=== PATIENT | female | born 1965 | race Caucasian/White ===

== ENCOUNTER 2022-05-31 17:27 | Observation (INO) ==
[2022-05-31] MEDS ORDERED: APRESOLINE INJ 20 MG VIAL IVP PRN (19:34)
[2022-05-31] MEDS: NS 1,000 ML IV 1,000 ML IV SCH (21:31)
[2022-05-31] MEDS: COZAAR PO SCH (21:32)
[2022-05-31] MEDS: NORVASC TAB 5 MG PO SCH (21:33)
[2022-05-31] MEDS: NovoLIN R (or HumuLIN R) SUBCUT PRN (21:55)
[2022-05-31] MEDS: SNACK - Diabetic Appropriate PO SCH (21:56)
[2022-05-31 23:28] VITALS: BMI 38.7
[2022-06-01 05:57] LABS: BASOPHILS # (AUTO) 0.1 X10^3/uL (0.0-0.1); BASOPHILS % (AUTO) 0.8 % (0.2-1.0); EOSINOPHILS # (AUTO) 0.3 x10^3/uL (0.0-0.2); EOSINOPHILS % (AUTO) 4.1 % (0.9-2.9); HEMATOCRIT 40.2 % (36.0-47.0); HEMOGLOBIN 13.8 g/dL (12.0-16.0); LYMPHOCYTES # (AUTO) 2.9 X10^3/uL (1.3-2.9); LYMPHOCYTES % (AUTO) 38.8 % (21.0-51.0); MEAN CORPUSCULAR HEMOGLOBIN 28.9 pg (27.0-34.0); MEAN CORPUSCULAR HGB CONC 34.4 g/dL (33.0-35.0); MEAN CORPUSCULAR VOLUME 84.1 fL (80.0-100.0); MEAN PLATELET VOLUME 8.4 fL (7.4-11.0); MONOCYTES # (AUTO) 0.6 x10^3/uL (0.3-0.8); MONOCYTES % (AUTO) 7.6 % (0.0-13.0); NEUTROPHILS # (AUTO) 3.7 x10^3/uL (2.2-4.8); NEUTROPHILS % (AUTO) 48.7 % (42.0-75.0); RED BLOOD COUNT 4.78 X10^6/uL (3.5-5.4); RED CELL DISTRIBUTION WIDTH 14.2 % (11.6-16.5); WHITE BLOOD COUNT 7.5 X10^3/uL (3.6-10.0)
[2022-06-01] MEDS ORDERED: GLUCOPHAGE ONE ×2 (06:03→16:56)
[2022-06-01 06:06] LABS: ALANINE AMINOTRANSFERASE 34 Units/L (12-78); ALBUMIN 3.1 g/dL (3.4-5.0); ALKALINE PHOSPHATASE 137 Units/L (46-116); ASPARTATE AMINO TRANSFERASE 24 Units/L (15-37); BLOOD UREA NITROGEN 12 mg/dL (7-18); CALCIUM 8.5 mg/dL (8.5-10.1); CARBON DIOXIDE 29.5 mmol/L (21-32); CHLORIDE 100 mmol/L (98-107); COR CA(FOR HYPOALB) 9.2 mg/dL (8.5-10.1); COR NA(FOR HYPERGLY) 139 mmol/L (136-145); CREATININE 0.79 mg/dL (0.55-1.02); SODIUM 136 mmol/L (136-145); TOTAL PROTEIN 7.3 g/dL (6.4-8.2); eGFR NON BLACK RACES > 60 (>60)
[2022-06-01] MEDS: NovoLIN R (or HumuLIN R) SUBCUT PRN ×4 (06:06→21:12)
[2022-06-01] MEDS: GLUCOPHAGE PO SCH ×2 (06:07→17:00)
--- NOTE | 2022-06-01 08:46 | DR.H&P ---
H&P - History & Physical for Day of: H&P Date: 05/31/22 - Chief Complaint Chief Complaint: Off Balance, questions if had another stroke, elevated BP and BS - History of Present Illness History of Present Illness: the patient is a 56-year-old white female presented to the [facility] after work instructed her to present to the doctor's office. Patient was found to have delayed responses as well as blood pressure 200/130 and blood sugar 570s. patient states that she had taken her medications. Patient did state that she had to stop the Farxiga Due to allergic reaction and pharmacy has been out of her Ozempic. Patient states she started feeling LAST weekend and went to the emergency room. States that she failed off balance and sluggish. Review of medical records status revealed workup for elevated blood sugar 700. Patient denies workup for stroke. Patient does complain of having new onset weakness to the right side. Family member present and states that she has been sluggish to answer questions. States that she is not at her mental baseline. patient is agreeable for admission. - Past Medical History Past Medical History: CVA, Diabetes, Dyslipidemia, Migraines, Headaches, Hypertension, Hypothyroidism Additional Medical History: Vitamin D deficiency - Past Surgical History Surgical History: , Cholecystectomy, [employer] Surgery Additional Surgical History: Endarectomy - Family History Family Medical History: Diabetes Mellitus, Cancer, Hypertension - Social History Does patient currently use any type of tobacco product: No Have you used tobacco products in the last 12 months: No Type of Tobacco Use: None Does any household member use tobacco: No Alcohol Use: None Drug Use: None Risks, benefits, and alternatives of opioids discussed: No Prescription drug monitoring program results: PDMP reviewed and no concerns id entified - Medications Home Medications: clonidine Allergy (Verified 02/03/21 11:44) insulin aspart [From Novolog U-100 Insulin aspart] Allergy (Verified 02/03/21 11:44) CONTINUE taking the following medications clopidogrel 75 mg tablet 1 tab PO QDAY 05/31/22 [History] glimepiride 4 mg tablet 1 tab PO BID 05/31/22 [History] metformin 500 mg tablet 500 mg PO BID 05/31/22 [History] semaglutide 0.25 mg or 0.5 mg (2 mg/1.5 mL) subcutaneous pen injector (Ozempic) 1 ea subcut WEEKLY 05/31/22 [History] - Review of Systems Constitutional: Malaise Eyes: No Symptoms Reported ENT: No Symptoms Reported Respiratory: No Symptoms Reported Cardiovascular: No Symptoms Reported Gastrointestinal: No Symptoms Reported Genitourinary: No Symptoms Reported Musculoskeletal: No Symptoms Reported Skin: No Symptoms Reported Neurological: See HPI, Weakness, Change in Speech - Physical Exam Vital Signs: Temperature 97.6 F Pulse Rate [Left Radial] 63 Respiratory Rate 20 Blood Pressure [Right Arm] 159/80 Blood Pressure [Left Arm] 180/85 Blood Pressure 136/83 O2 Sat by Pulse Oximetry 96 Oriented: Normal Eyes: Normal Ear: Normal Nose: Normal Throat: Normal Respiratory: Clear Throughout Cardiovascular: Normal : Normal Auscultation: Bowel Sounds: Normal Palpation: Normal Tenderness: Normal Skin: Normal Musculoskeletal: Motor Deficit Psychiatric: Normal Mood Description: Calm Affect: Normal Speech Pattern: Delayed - Assessment/Plan (1) Diabetes Qualifiers: Diabetes mellitus type: type 2 Diabetes mellitus complication status: with hyperglycemia Status: Acute Plan: fingerstick blood sugars before meals and at bedtime with sliding scale coverage (2) Hypertension Qualifiers: Hypertension type: primary hypertension Qualified Code(s): I10 - Essential (primary) hypertension Status: Acute Plan: monitor blood pressure and administer medications as needed (3) Cerebrovascular disease Status: Acute Plan: evaluate for acute event (4) Altered mental status Status: Acute Plan: CT of head to rule out acute event, improved blood sugar and blood pressure - Review H&P Reviewed: Yes Patient was examined?: Yes - Allergies Allergies/Adverse Reactions: Allergies Allergy/AdvReac Type Severity Reaction Status Date / Time clonidine Allergy Verified 02/03/21 11:44 insulin aspart Allergy Verified 02/03/21 11:44 [From Novolog U-100 Insulin aspart]
[2022-06-01] MEDS: NORVASC TAB 5 MG PO SCH (09:29)
[2022-06-01] MEDS: PROTONIX INJ 40 MG VIAL IVP SCH (09:29)
[2022-06-01] MEDS: COZAAR PO SCH (09:30)
[2022-06-01] MEDS: PLAVIX PO SCH (09:33)
[2022-06-01] MEDS: NS 1,000 ML IV 1,000 ML IV SCH (10:00)
[2022-06-01] MEDS: SNACK - Diabetic Appropriate PO SCH (20:55)
[2022-06-02] MEDS: NS 1,000 ML IV 1,000 ML IV SCH ×2 (00:10→14:53)
[2022-06-02 05:52] LABS: BASOPHILS % (AUTO) 0.6 % (0.2-1.0); EOSINOPHILS # (AUTO) 0.2 x10^3/uL (0.0-0.2); EOSINOPHILS % (AUTO) 3.6 % (0.9-2.9); HEMATOCRIT 40.2 % (36.0-47.0); HEMOGLOBIN 13.7 g/dL (12.0-16.0); LYMPHOCYTES # (AUTO) 2.2 X10^3/uL (1.3-2.9); MEAN CORPUSCULAR HEMOGLOBIN 28.8 pg (27.0-34.0); MEAN CORPUSCULAR HGB CONC 34.1 g/dL (33.0-35.0); MEAN CORPUSCULAR VOLUME 84.4 fL (80.0-100.0); MEAN PLATELET VOLUME 8.2 fL (7.4-11.0); MONOCYTES # (AUTO) 0.5 x10^3/uL (0.3-0.8); MONOCYTES % (AUTO) 7.9 % (0.0-13.0); NEUTROPHILS # (AUTO) 3.7 x10^3/uL (2.2-4.8); NEUTROPHILS % (AUTO) 54.9 % (42.0-75.0); RED BLOOD COUNT 4.76 X10^6/uL (3.5-5.4); RED CELL DISTRIBUTION WIDTH 14.3 % (11.6-16.5); WHITE BLOOD COUNT 6.7 X10^3/uL (3.6-10.0)
[2022-06-02] MEDS ORDERED: GLUCOPHAGE ONE ×2 (06:01→15:47)
[2022-06-02] MEDS: NovoLIN R (or HumuLIN R) SUBCUT PRN ×4 (06:07→20:45)
[2022-06-02 06:11] LABS: ALANINE AMINOTRANSFERASE 30 Units/L (12-78); ALBUMIN 2.8 g/dL (3.4-5.0); ALKALINE PHOSPHATASE 124 Units/L (46-116); ASPARTATE AMINO TRANSFERASE 20 Units/L (15-37); BLOOD UREA NITROGEN 13 mg/dL (7-18); CALCIUM 8.4 mg/dL (8.5-10.1); CARBON DIOXIDE 28.2 mmol/L (21-32); CHLORIDE 99 mmol/L (98-107); COR CA(FOR HYPOALB) 9.4 mg/dL (8.5-10.1); COR NA(FOR HYPERGLY) 137 mmol/L (136-145); CREATININE 0.84 mg/dL (0.55-1.02); SODIUM 133 mmol/L (136-145); TOTAL PROTEIN 6.8 g/dL (6.4-8.2); eGFR NON BLACK RACES > 60 (>60)
[2022-06-02] MEDS: GLUCOPHAGE PO SCH ×2 (06:11→16:05)
--- NOTE | 2022-06-02 08:26 | VAS ---
HISTORYMalignant hypertension. Altered mental status.STUDYCAROTID USCOMPARISONNoneTECHNIQUEFifty-nine images made by the specialty sales representative. [place] scale and color flow Doppler images of the right carotid arterial system, left carotid arterial system, and vertebral arterial system were obtained.FINDINGSVelocities are measured in centimeters per second. Recommendations are based on peer reviewed published data from Society of Radiologists in Ultrasound Consensus Conference, 2003.Right side: Right common carotid and internal carotid arteries are widely patent. No significant plaque disease seen in the right carotid bulb.Peak systolic velocity in the right common carotid artery measured 63. Peak systolic velocity in the right internal carotid artery measured 65. This yields a peak systolic velocity ratio of 1.0. The peak end diastolic velocity measured 31. There is no hemodynamically significant stenosis.Right external carotid artery was patent. Flow in the right vertebral artery was antegrade.Left side: Left common carotid and internal carotid arteries are widely patent. Very minimal plaque noted in the left carotid bulb seen is focal wall thickening. There is no echogenicity or shadowing to suggest calcification.Peak systolic velocity in the left common carotid artery measured [105]. Peak systolic velocity in the left internal carotid artery measured [76]. This yields a peak systolic velocity ratio of [0.7]. The peak end diastolic velocity measured [26]. [There is no hemodynamically significant stenosis.]Left external carotid artery was patent. Flow in the left vertebral artery was antegrade.IMPRESSION1. Very minimal left carotid bulb plaque2. No significant right or left carotid stenosisElectronically signed by: Heraclio Almendarez (Jun 02, 2022 08:24:58)
[2022-06-02] MEDS: NORVASC TAB 5 MG PO SCH (08:30)
[2022-06-02] MEDS: PLAVIX PO SCH (08:30)
[2022-06-02] MEDS: COZAAR PO SCH (08:30)
[2022-06-02] MEDS: PROTONIX INJ 40 MG VIAL IVP SCH (08:30)
[2022-06-02] MEDS ORDERED: ATIVAN INJ 2 MG VIAL IVP PRN (10:57)
[2022-06-02] MEDS ORDERED: BENADRYL INJ 50 MG VIAL IVP ONE (10:58)
--- NOTE | 2022-06-02 13:41 | MRI ---
HISTORYTIA VS CVA, HYPERTENSIVESTUDYBRAIN W/O CONCOMPARISONNone.TECHNIQUEMultiplanar multi-sequence MRI of the brain was obtained utilizing standard departmental protocol. Sagittal and axial T1 weighted images were obtained. Axial T2 and flair weighted images were performed as well. Axial diffusion weighted and ADC trace mapping was performed.FINDINGSVarying degrees of motion artifact on different sequences limit evaluation. Many sequences demonstrate severe motion artifact. Multiple repeat sequences were performed.Diffusion imaging: [There is likely true focal restricted diffusion at the posterior limb of the left internal capsule image 13 series 502.]Susceptibility weighted imaging: [Limited. No discernible abnormal susceptibility artifact.]Brain volume: [Appropriate for age.]Ventricles and basal cisterns: [Normal for age.]Extra-axial spaces: [No extra-axial collection.]Cerebral parynchema: [Significantly limited due to motion artifact. No discernible mass, hematoma, or mass effect.] Mild amount of T2 and Flair hyperintensities in the supratentorial subcortical and deep white matter.Pituitary and other sagittal midline structures: [Significantly limited. No abnormality identified.]Visualized orbits: [No discernible abnormality.]Paranasal sinuses and mastoid air cells: [No air-fluid levels in the paranasal sinuses or mastoid air cell fluid.]Bones: [Intact.]Other: [None.]IMPRESSION[Likely true restricted diffusion in the posterior limb of the right internal capsule consistent with acute or early subacute lacunar infarct.Motion artifact significantly limits evaluation.]Electronically signed by: Cesar Membreno (Jun 02, 2022 13:39:39)
--- NOTE | 2022-06-02 14:30 | MRI ---
HISTORYTIA VS CVA, HYPERTENSIVESTUDYMRA HEAD W/O CONCOMPARISONSame day brain MRI.[id number] MR angiography of the brain was performed. Rotating MIP images were generated and reviewed.FINDINGSLimitations: [Moderate motion artifact.]Intracranial internal carotid arteries: [Limited. There is no occlusion of the ICAs. Decreased signal in the cavernous portions may be due to stenosis, motion artifact, or flow related signal loss.]Anterior cerebral arteries: [No discernible occlusion.]Middle cerebral arteries: [No occlusion of the M1 segments.]Vertebrobasilar system:[Patent.]Posterior cerebral arteries: [No occlusion of the posterior cerebral arteries is identified.]No vascular malformation.IMPRESSION[][Limited study. No large vessel occlusion identified. Possible moderate to severe stenosis of the cavernous ICAs versus artifactual signal loss.] Consider CTA for further evaluation as clinically warranted.Electronically signed by: Cesar Membreno (Jun 02, 2022 14:29:01)
[2022-06-02] MEDS ORDERED: COZAAR PO SCH (16:00)
[2022-06-02] MEDS: SNACK - Diabetic Appropriate PO SCH (20:48)
[2022-06-03] MEDS: NS 1,000 ML IV 1,000 ML IV SCH (04:08)
[2022-06-03 06:02] LABS: BASOPHILS # (AUTO) 0.1 X10^3/uL (0.0-0.1); BASOPHILS % (AUTO) 0.9 % (0.2-1.0); EOSINOPHILS # (AUTO) 0.3 x10^3/uL (0.0-0.2); EOSINOPHILS % (AUTO) 4.1 % (0.9-2.9); HEMATOCRIT 41.4 % (36.0-47.0); HEMOGLOBIN 14.2 g/dL (12.0-16.0); LYMPHOCYTES # (AUTO) 2.4 X10^3/uL (1.3-2.9); LYMPHOCYTES % (AUTO) 33.4 % (21.0-51.0); MEAN CORPUSCULAR HEMOGLOBIN 28.7 pg (27.0-34.0); MEAN CORPUSCULAR HGB CONC 34.3 g/dL (33.0-35.0); MEAN CORPUSCULAR VOLUME 83.7 fL (80.0-100.0); MEAN PLATELET VOLUME 8.1 fL (7.4-11.0); MONOCYTES # (AUTO) 0.6 x10^3/uL (0.3-0.8); MONOCYTES % (AUTO) 7.7 % (0.0-13.0); NEUTROPHILS # (AUTO) 3.9 x10^3/uL (2.2-4.8); NEUTROPHILS % (AUTO) 53.9 % (42.0-75.0); RED BLOOD COUNT 4.94 X10^6/uL (3.5-5.4); WHITE BLOOD COUNT 7.2 X10^3/uL (3.6-10.0)
[2022-06-03] MEDS ORDERED: GLUCOPHAGE ONE (06:02)
[2022-06-03] MEDS: GLUCOPHAGE PO SCH (06:04)
[2022-06-03] MEDS: NovoLIN R (or HumuLIN R) SUBCUT PRN (06:19)
[2022-06-03 06:39] LABS: ALANINE AMINOTRANSFERASE 29 Units/L (12-78); ALBUMIN 2.9 g/dL (3.4-5.0); ALKALINE PHOSPHATASE 114 Units/L (46-116); ASPARTATE AMINO TRANSFERASE 20 Units/L (15-37); BLOOD UREA NITROGEN 16 mg/dL (7-18); CALCIUM 8.6 mg/dL (8.5-10.1); CARBON DIOXIDE 27.2 mmol/L (21-32); CHLORIDE 100 mmol/L (98-107); COR CA(FOR HYPOALB) 9.5 mg/dL (8.5-10.1); COR NA(FOR HYPERGLY) 136 mmol/L (136-145); CREATININE 0.86 mg/dL (0.55-1.02); SODIUM 134 mmol/L (136-145); eGFR NON BLACK RACES > 60 (>60)
[2022-06-03 07:52] VITALS: BP 176/81
[2022-06-03] MEDS: PROTONIX INJ 40 MG VIAL IVP SCH (09:03)
[2022-06-03] MEDS: NORVASC TAB 5 MG PO SCH (09:03)
[2022-06-03] MEDS: PLAVIX PO SCH (09:03)
== END 2022-06-03 10:52 | disposition home or self-care (01) ==
LOC: MED/SURG
PROVIDERS: ADMIT Internal Medicine; ATTEND Internal Medicine
DX: I16.0 Hypertensive urgency; E78.2 Mixed hyperlipidemia; E11.65 Type 2 diabetes mellitus with hyperglycemia; R41.82 Altered mental status, unspecified; G45.8 Other transient cerebral ischemic attacks and related syndromes; E03.8 Other specified hypothyroidism; I10 Essential (primary) hypertension